=== PATIENT | female | born 1950 | race Caucasian/White ===

== ENCOUNTER 2019-11-18 09:28 | Inpatient (IN) | payer MEDICARE, BC ==
[2019-11-18] MEDS ORDERED: HYDROmorphone 0.5 MG/0.5 ML Syringe IVPUSH ONE ×3 (09:49→13:09)
[2019-11-18] MEDS ORDERED: Ondansetron 4 MG/2 ML SDV IVPUSH ONE (09:49)
[2019-11-18] MEDS ORDERED: Lactated Ringers 1,000 ML IV SCH (10:00)
--- NOTE | 2019-11-18 10:05 | EDM.PDOC ---
ED HPI GENERAL MEDICAL PROBLEM - General Chief Complaint: Abdominal Pain Stated Complaint: PAIN IN STOMACH AREA Time Seen by Provider: 11/18/19 09:45 Source of Information: Reports: Patient History Limitations: Reports: No Limitations - History of Present Illness INITIAL COMMENTS - FREE TEXT/NARRATIVE: 61-year-old female, relatively healthy without any history of abdominal surgeries, presents with upper abdominal pain for the past 15 hours. She had a similar episode 3 weeks ago that lasted 2 hours and then resolved. Last night after her evening meal she developed upper abdominal pain radiating to her back and it is been persistent for 15 hours. Some nausea and vomiting, no fevers or chills, no urinary symptoms, no diarrhea or constipation. Denies shortness of breath or chest pain, no pleuritic pain. Onset: Sudden (Symptoms started fairly suddenly just after 7 PM last evening) Duration: Hour(s): (15 hours) Location: Reports: Abdomen Improves with: Reports: None (She tried some of her pain medication and it did not help) Worsens with: Reports: Movement Associated Symptoms: Reports: Loss of Appetite, Nausea/Vomiting. Denies: Confusion, Chest Pain, Cough, Diaphoresis, Fever/Chills, Shortness of Breath, Weakness Abdominal Pain Score (Numeric/FACES): 10 - Related Data Allergies Allergy/AdvReac Type Severity Reaction Status Date / Time flurbiprofen [From Ansaid] Allergy Abdominal Verified 11/18/19 09:35 Pain Sulfa (Sulfonamide Allergy Rash Verified 01/25/14 10:45 Antibiotics) Home Meds: Home Meds DULoxetine [Cymbalta] 120 mg PO DAILY 01/25/14 [History] Calcium Carbonate [Tums] 400 mg PO ASDIRECTED PRN 11/18/19 [History] ClonazePAM [KlonoPIN] 0.25 mg PO DAILY 11/18/19 [History] Famotidine [Pepcid AC] 20 mg PO BID 11/18/19 [History] Hydrocodone/Acetaminophen [[place] 10-325 Tablet] 1 each PO DAILY 11/18/19 [ History] Topiramate 25 mg PO BEDTIME 11/18/19 [History] buPROPion [buPROPion XL] 450 mg PO DAILY 11/18/19 [History] estradioL [Estradiol] 1 mg PO DAILY 11/18/19 [History] medroxyPROGESTERone Acetate [Provera] 2.5 mg PO DAILY 11/18/19 [History] traZODone 100 mg PO BEDTIME 11/18/19 [History] Past Medical History HEENT History: Reports: Cataract Gastrointestinal History: Reports: GERD Musculoskeletal History: Reports: Fracture, Fibromyalgia, Osteoarthritis Neurological History: Reports: Migraines Psychiatric History: Reports: Anxiety, Depression - Infectious Disease History Infectious Disease History: Reports: Chicken Pox, Measles - Past Surgical History HEENT Surgical History: Reports: Cataract Surgery Musculoskeletal Surgical History: Reports: Other (See Below) Other Musculoskeletal Surgeries/Procedures:: bunionectomy Social & Family History - Tobacco Use Smoking Status *Q: Never Smoker - Caffeine Use Caffeine Use: Reports: None - Recreational Drug Use Recreational Drug Use: No ED ROS GENERAL - Review of Systems Review Of Systems: See Below Constitutional: Reports: Malaise, Decreased Appetite. Denies: Fever, Chills HEENT: Reports: No Symptoms Respiratory: Denies: Shortness of Breath Cardiovascular: Denies: Chest Pain GI/Abdominal: Reports: Abdominal Pain, Decreased Appetite, Nausea, Vomiting. Denies: Constipation, Diarrhea, Distension, Hematemesis, Hematochezia : Reports: No Symptoms Skin: Reports: No Symptoms Neurological: Reports: No Symptoms. Denies: Headache Psychiatric: Reports: Anxiety ED EXAM, GI/ABD - Physical Exam Exam: See Below Exam Limited By: No Limitations General Appearance: Alert, No Apparent Distress Eyes: Bilateral: Normal Appearance (No jaundice) Head: Atraumatic Respiratory/Chest: No Respiratory Distress, Lungs Clear Cardiovascular: Regular Rate, Rhythm GI/Abdominal Exam: Normal Bowel Sounds, Soft, Tender (Very tender to palpation across the upper abdomen especially epigastric and right upper quadrant, Ram sign is positive) Extremities: Normal Inspection. No: Pedal Edema Neurological: Alert, Oriented Psychiatric: Normal Affect, Normal Mood Course - Vital Signs Last Recorded V/S: Last Vital Signs Temp 97.7 F 11/18/19 09:42 Pulse 79 11/18/19 13:11 Resp 18 11/18/19 13:11 BP 189/79 H 11/18/19 13:11 Pulse Ox 97 11/18/19 13:11 - Orders/Labs/Meds Orders: Active Orders 24 hr Category Date Time Status Lactated Ringers [Ringers, Lactated] 1,000 ml Med 11/18/19 10:00 Active IV ASDIRECTED Medication Orders Lactated Ringer's (Ringers, Lactated) 1,000 mls @ 500 mls/hr IV ASDIRECTED DENISSE Last Admin: 11/18/19 10:11 Dose: 500 mls/hr Labs: Laboratory Tests 11/18/19 11/18/19 Range/Units 10:05 10:05 WBC 11.9 H (4.5-11.0) K/uL RBC 4.61 (3.30-5.50) M/uL Hgb 14.3 (12.0-15.0) g/dL Hct 43.9 (36.0-48.0) % MCV 95 (80-98) fL MCH 31 (27-31) pg MCHC 33 (32-36) % Plt Count 170 (150-400) K/uL Neut % (Auto) 89 H (36-66) % Lymph % (Auto) 6 L (24-44) % [place] % (Auto) 5 (2-6) % Eos % (Auto) 0 L (2-4) % Baso % (Auto) 0 (0-1) % Sodium 134 L (140-148) mmol/L Potassium 3.9 (3.6-5.2) mmol/L Chloride 98 L (100-108) mmol/L Carbon Dioxide 26 (21-32) mmol/L Anion Gap 13.9 (5.0-14.0) mmol/L BUN 16 (7-18) mg/dL Creatinine 0.9 (0.6-1.0) mg/dL Est Cr Clr Drug Dosing 51.66 mL/min Estimated GFR (MDRD) > 60 (>60) Glucose 142 H (74-106) mg/dL Calcium 8.3 L (8.5-10.1) mg/dL Total Bilirubin 0.7 (0.2-1.0) mg/dL AST 76 H (15-37) U/L ALT 72 (12-78) U/L Alkaline Phosphatase 65 (46-116) U/L Total Protein 7.1 (6.4-8.2) g/dL Albumin 4.0 (3.4-5.0) g/dL Globulin 3.1 (2.3-3.5) g/dL Albumin/Globulin Ratio 1.3 (1.2-2.2) Lipase 54 L (73-393) U/L Meds: Medications Generic Name Dose Route Start Last Admin Trade Name [place] PRN Reason Stop Dose Admin Lactated Ringer's 1,000 mls @ 500 mls/hr 11/18/19 10:00 11/18/19 10:11 Ringers, Lactated IV 500 mls/hr ASDIRECTED DENISSE Administration Discontinued Medications Generic Name Dose Route Start Last Admin Trade Name [place] PRN Reason Stop Dose Admin Hydromorphone HCl 0.5 mg 11/18/19 09:49 11/18/19 10:12 Dilaudid IVPUSH 11/18/19 09:50 0.5 mg ONETIME ONE Administration Hydromorphone HCl 0.5 mg 11/18/19 11:31 11/18/19 11:38 Dilaudid IVPUSH 11/18/19 11:32 0.5 mg ONETIME ONE Administration Hydromorphone HCl 0.5 mg 11/18/19 13:09 11/18/19 13:18 Dilaudid IVPUSH 11/18/19 13:10 0.5 mg ONETIME ONE Administration Ampicillin Sodium/Sulbactam 50 mls @ 100 mls/hr 11/18/19 11:30 11/18/19 11:37 Sodium 1.5 gm/ Sodium Chloride IV 11/18/19 11:59 100 mls/hr ONETIME ONE Administration Ondansetron HCl 4 mg 11/18/19 09:49 11/18/19 10:12 Zofran IVPUSH 11/18/19 09:50 4 mg ONETIME ONE Administration - Re-Assessments/Exams Free Text/Narrative Re-Assessment/Exam: 11/18/19 10:04 An IV was started, patient was given 0.5 mg of IV Dilaudid and 4 mg of Zofran. A courtesy ultrasound was performed that showed a somewhat dilated gallbladder, no obviously thickened wall or pericholecystic fluid but a lot of dependent stones in the neck of the gallbladder. She was also tender from the ultrasound probe. CBC, CMP, lipase were obtained and lactated Ringer IV solution at 500 cc an hour started. This likely is biliary colic. 11/18/19 10:19 IV Dilaudid gave the patient significant pain relief. White count returned 11, 900, rest of labs are still pending. 11/18/19 11:18 AST is mildly elevated, ALT and alk phos as well as lipase were normal. A formal ultrasound was obtained and showed a positive Rma sign with numerous stones, borderline wall thickening but no pericholecystic fluid or biliary distention. Dr. Sheffield asked for the hospitalist service to admit the patient for pain control, hydration, and monitoring to prepare for surgery tomorrow morning. Patient was in agreement with the plan. Departure - Departure Time of Disposition: 12:05 Disposition: Admitted As Inpatient 67 Clinical Impression: Biliary colic Abdominal pain Qualifiers: Abdominal location: upper abdomen, unspecified Qualified Code(s): R10.10 - Upper abdominal pain, unspecified - Discharge Information Sepsis Event Note - Evaluation Sepsis Screening Result: No Definite Risk - Focused Exam Vital Signs: Vital Signs Temp Pulse Resp BP Pulse Ox 11/18/19 11:24 80 16 190/64 H 97 11/18/19 10:16 75 16 189/74 H 96 11/18/19 09:42 97.7 F 72 13 193/75 H 96 11/18/19 09:34 97.7 F 72 13 193/75 H 96 Date Exam was Performed: 11/18/19 Time Exam was Performed: 13:32 - My Orders Last 24 Hours: My Active Orders 11/18/19 10:00 Lactated Ringers [Ringers, Lactated] 1,000 ml IV ASDIRECTED - Assessment/Plan Last 24 Hours: My Active Orders 11/18/19 10:00 Lactated Ringers [Ringers, Lactated] 1,000 ml IV ASDIRECTED
[2019-11-18] MEDS ORDERED: Ampicillin/Sulbactam Na 1.5 GM in Sodium Chloride 0.9% 50 ML IV ONE ×2 (11:17→11:30)
--- NOTE | 2019-11-18 11:48 | US ---
Abdomen Ltd CLINICAL HISTORY: Right upper quadrant pain COMPARISON: None. TECHNIQUE: Real-time images were obtained through the right upper quadrant. FINDINGS: The liver is free of mass or biliary dilatation. There is increased hepatic echogenicity. The gallbladder is hydropic. There are multiple small gallstones. The common bile duct measures 5 mm. The pancreas is partially obscured. No mass is identified. The right kidney has a normal appearance. The IVC is normal. IMPRESSION: Hydropic gallbladder with multiple small stones. No biliary ductal dilatation Increased hepatic echotexture suggests fatty infiltration
--- NOTE | 2019-11-18 12:29 | PCM.HP.2 ---
H&P History of Present Illness - General Date of Service: 11/18/19 Admit Problem/Dx: Admission Diagnosis/Problem Admission Diagnosis/Problem Cholecystitis Source of Information: Patient, Provider, RN Notes Reviewed History Limitations: Reports: No Limitations - History of Present Illness Initial Comments - Free Text/Narative: Ms. Lou is a 69-year-old woman who was admitted through the emergency department with upper abdominal pain, nausea and vomiting, and dehydration secondary to acute cholecystitis. She was feeling well until after her evening meal last night when she developed upper abdominal pain described as an intense ache radiating to her back. This was associated with nausea and vomiting. Symptoms persisted until this morning when she presented to the emergency department for further evaluation. White cell count was found to be modestly elevated, AST mildly elevated, otherwise labs were unremarkable. Abdominal ultrasound was obtained and shows evidence of cholelithiasis, borderline gallbladder wall thickening, and positive Ram's sign. These findings were reviewed with Dr. Sheffield, he requested patient be admitted for cholecystectomy tomorrow. Abdominal Pain Score (Numeric/FACES): 5 - Related Data Allergies/Adverse Reactions: Allergies Allergy/AdvReac Type Severity Reaction Status Date / Time flurbiprofen [From Ansaid] Allergy Abdominal Verified 11/18/19 09:35 Pain Sulfa (Sulfonamide Allergy Rash Verified 01/25/14 10:45 Antibiotics) Home Medications: Home Meds DULoxetine [Cymbalta] 120 mg PO DAILY 01/25/14 [History] Calcium Carbonate [Tums] 400 mg PO ASDIRECTED PRN 11/18/19 [History] ClonazePAM [KlonoPIN] 0.25 mg PO DAILY 11/18/19 [History] Famotidine [Pepcid AC] 20 mg PO BID 11/18/19 [History] Hydrocodone/Acetaminophen [[place] 10-325 Tablet] 1 each PO DAILY 11/18/19 [ History] Topiramate 25 mg PO BEDTIME 11/18/19 [History] buPROPion [buPROPion XL] 450 mg PO DAILY 11/18/19 [History] estradioL [Estradiol] 1 mg PO DAILY 11/18/19 [History] medroxyPROGESTERone Acetate [Provera] 2.5 mg PO DAILY 11/18/19 [History] traZODone 100 mg PO BEDTIME 11/18/19 [History] Past Medical History HEENT History: Reports: Cataract Gastrointestinal History: Reports: GERD Musculoskeletal History: Reports: Fracture, Fibromyalgia, Osteoarthritis Neurological History: Reports: Migraines Psychiatric History: Reports: Anxiety, Depression - Infectious Disease History Infectious Disease History: Reports: Chicken Pox, Measles - Past Surgical History HEENT Surgical History: Reports: Cataract Surgery Musculoskeletal Surgical History: Reports: Other (See Below) Other Musculoskeletal Surgeries/Procedures:: bunionectomy Social & Family History - Tobacco Use Smoking Status *Q: Never Smoker - Caffeine Use Caffeine Use: Reports: None - Recreational Drug Use Recreational Drug Use: No H&P Review of Systems - Review of Systems: Review Of Systems: See Below General: Reports: Fever, Chills, Weakness, Decreased Appetite HEENT: Reports: No Symptoms Pulmonary: Reports: No Symptoms Cardiovascular: Reports: No Symptoms Gastrointestinal: Reports: Abdominal Pain, Decreased Appetite, Distension, Nausea, Vomiting. Denies: Black Stool, Bloody Stool, Constipation, Diarrhea Genitourinary: Reports: No Symptoms Musculoskeletal: Reports: No Symptoms Skin: Reports: No Symptoms Psychiatric: Reports: No Symptoms Neurological: Reports: No Symptoms Hematologic/Lymphatic: Reports: No Symptoms Immunologic: Reports: No Symptoms Exam - Exam Exam: See Below - Vital Signs Vital Signs: Last Vital Signs Temp 97.7 F 11/18/19 09:42 Pulse 80 11/18/19 11:24 Resp 16 11/18/19 11:24 BP 190/64 H 11/18/19 11:24 Pulse Ox 97 11/18/19 11:24 Weight: 173 lb - Exam Quality Assessment: DVT Prophylaxis General: Alert, Oriented, Cooperative, Moderate Distress HEENT: Conjunctiva Clear, Hearing Intact, Normal Nasal Septum, Posterior Pharynx Clear, Pupils Equal. No: Mucosa Moist & [place] Neck: Supple, Trachea Midline, +2 Carotid Pulse wo Bruit Lungs: Clear to Auscultation, Normal Respiratory Effort Cardiovascular: Regular Rate, Regular Rhythm, Normal S1, Normal S2. No: Systolic Murmur, Diastolic Murmur GI/Abdominal Exam: Soft, No Organomegaly, Distended, Tender. No: Guarding, Rigid, Rebound Back Exam: Normal Inspection, Full Range of Motion Extremities: Non-Tender, No Pedal Edema Skin: Warm, Dry, Intact Neurological: Cranial Nerves Intact, Strength Equal Bilateral, Normal Speech, Normal Tone, Sensation Intact. No: Focal Deficit Neuro Extensive - Mental Status: Alert, Oriented x3, Normal Mood/Affect, Normal Cognition, Memory Intact - Patient Data Lab Results Last 24 hrs: Laboratory Results - last 24 hr 11/18/19 11/18/19 Range/Units 10:05 10:05 WBC 11.9 H (4.5-11.0) K/uL RBC 4.61 (3.30-5.50) M/uL Hgb 14.3 (12.0-15.0) g/dL Hct 43.9 (36.0-48.0) % MCV 95 (80-98) fL MCH 31 (27-31) pg MCHC 33 (32-36) % Plt Count 170 (150-400) K/uL Neut % (Auto) 89 H (36-66) % Lymph % (Auto) 6 L (24-44) % [place] % (Auto) 5 (2-6) % Eos % (Auto) 0 L (2-4) % Baso % (Auto) 0 (0-1) % Sodium 134 L (140-148) mmol/L Potassium 3.9 (3.6-5.2) mmol/L Chloride 98 L (100-108) mmol/L Carbon Dioxide 26 (21-32) mmol/L Anion Gap 13.9 (5.0-14.0) mmol/L BUN 16 (7-18) mg/dL Creatinine 0.9 (0.6-1.0) mg/dL Est Cr Clr Drug Dosing 51.66 mL/min Estimated GFR (MDRD) > 60 (>60) Glucose 142 H (74-106) mg/dL Calcium 8.3 L (8.5-10.1) mg/dL Total Bilirubin 0.7 (0.2-1.0) mg/dL AST 76 H (15-37) U/L ALT 72 (12-78) U/L Alkaline Phosphatase 65 (46-116) U/L Total Protein 7.1 (6.4-8.2) g/dL Albumin 4.0 (3.4-5.0) g/dL Globulin 3.1 (2.3-3.5) g/dL Albumin/Globulin Ratio 1.3 (1.2-2.2) Lipase 54 L (73-393) U/L Result Diagrams: 11/18/19 10:05 11/18/19 10:05 Sepsis Event Note - Evaluation Sepsis Screening Result: No Definite Risk - Focused Exam Vital Signs: Vital Signs Temp Pulse Resp BP Pulse Ox 11/18/19 11:24 80 16 190/64 H 97 11/18/19 10:16 75 16 189/74 H 96 11/18/19 09:42 97.7 F 72 13 193/75 H 96 11/18/19 09:34 97.7 F 72 13 193/75 H 96 Date Exam was Performed: 11/18/19 Time Exam was Performed: 12:40 *Q Meaningful Use (ADM) - VTE *Q VTE Pharmacological Contraindications *Q: Patient Scheduled Surgery - VTE Risk Assess *Q Each Risk Factor Represents 1 Point: Obesity ( BMI > 25 kg/m2) Total Score 1 Point Risk Factors: 1 Each Risk Factor Represents 2 Points: Age 60 - 74 Years Total Score 2 Point Risk Factors: 2 Each Risk Factor Represents 3 Points: None Total Score 3 Point Risk Factors: 0 Each Risk Factor Represents 5 Points: None Total Score 5 Point Risk Factors: 0 Venous Thromboembolism Risk Factor Score *Q: 3 Problem List Initiated/Reviewed/Updated: Yes Orders Last 24hrs: Active Orders 24 hr Category Date Time Status Patient Status Manage Transfer [TRANSFER] Routine ADT 11/18/19 12:21 Active Lactated Ringers [Ringers, Lactated] 1,000 ml Med 11/18/19 10:00 Active IV ASDIRECTED Resuscitation Status Routine Resus Stat 11/18/19 12:23 Ordered Medication Orders Lactated Ringer's (Ringers, Lactated) 1,000 mls @ 500 mls/hr IV ASDIRECTED DENISSE Last Admin: 11/18/19 10:11 Dose: 500 mls/hr Assessment/Plan Comment:: ASSESSMENT AND PLAN ACUTE CHOLECYSTITIS-is experienced 1 previous episode of similar symptoms. Current symptoms began on the evening prior to admission and persisted until she presented to the emergency department this morning. Ultrasound evaluation consistent with acute cholecystitis. -Clear liquid diet -N.p.o. after midnight -Consult Dr. Sheffield to see and assume care -IV fluids for hydration -Pain and nausea medication as needed -Unasyn 1.5 g IV every 6 hours DEPRESSION-stable on current medical therapy -Continue outpatient medications MAINTENANCE ISSUES -DVT prophylaxis; SCUDs, hold on anticoagulation because of pending surgery -GI prophylaxis; continue outpatient H2 adriano therapy -Manuel catheter; not indicated -Nutrition; clear liquid diet, n.p.o. after midnight -Nicotine dependence; not indicated CODE STATUS-FULL CODE ADMISSION STATUS-patient will be admitted to inpatient status, expect at least a 2 night hospital stay for evaluation and management of problems as outlined above. At the time of this admission I do not reasonably expected evaluation and management of this problem will require more than a 96 hour hospital stay. DISPOSITION-anticipate discharge to home after the hospital stay. PRIMARY CARE PROVIDER- - Mortality Measure Prognosis:: Good
[2019-11-18] MEDS ORDERED: Ondansetron 4 MG/2 ML SDV IV PRN (13:36)
[2019-11-18] MEDS ORDERED: Sodium Chloride 0.9% 10 ML Syringe FLUSH PRN (13:36)
[2019-11-18] MEDS ORDERED: Non-Formulary Medication 1 Each (Clonazepam [Klonopin] 0.25 MG) PO SCH (13:36)
[2019-11-18] MEDS: Lactated Ringers 1,000 ML IV SCH ×2 (13:58→21:56)
[2019-11-18] MEDS: Acetaminophen 325 MG Tab PO PRN ×2 (14:08→19:21)
[2019-11-18] MEDS: buPROPion 150 MG Tab.ER PO SCH (15:04)
[2019-11-18] MEDS: DULoxetine 30 MG Cap PO SCH (15:04)
[2019-11-18] MEDS: HYDROmorphone 0.5 MG/0.5 ML Syringe IVPUSH PRN ×3 (15:18→19:21)
[2019-11-18] MEDS: Ampicillin/Sulbactam Na 1.5 GM in Sodium Chloride 0.9% 50 ML IV SCH ×2 (17:08→23:16)
[2019-11-18] MEDS: Famotidine 20 MG Tab PO SCH (20:29)
[2019-11-18] MEDS: Topiramate 25 MG Tab PO SCH (20:29)
[2019-11-18] MEDS: ClonazePAM 0.5 MG Tab PO SCH (20:29)
[2019-11-18] MEDS: traZODone 50 MG Tab PO SCH (20:29)
[2019-11-18] MEDS ORDERED: Non-Formulary Medication 1 Each (Trazodone [Trazodone] 100 MG) PO SCH (21:00)
[2019-11-18] MEDS: HYDROmorphone 1 MG/ML Syringe IVPUSH PRN (21:48)
[2019-11-19] MEDS: HYDROmorphone 1 MG/ML Syringe IVPUSH PRN (03:51)
[2019-11-19] MEDS: Acetaminophen 325 MG Tab PO PRN (03:57)
[2019-11-19] MEDS: Ampicillin/Sulbactam Na 1.5 GM in Sodium Chloride 0.9% 50 ML IV SCH ×4 (05:21→22:50)
[2019-11-19] MEDS: Lactated Ringers 1,000 ML IV SCH (07:10)
[2019-11-19] MEDS ORDERED: HYDROmorphone/Normal Saline 15 MG/30 ML PCA IV PRN (07:24)
[2019-11-19] MEDS ORDERED: Naloxone 0.4 MG/ML SDV IV PRN (07:30)
[2019-11-19] MEDS ORDERED: Estradiol 0.5 MG Tab PO SCH (09:00)
[2019-11-19] MEDS: Estradiol 0.5 MG Tab PO SCH (09:16)
[2019-11-19] MEDS: DULoxetine 30 MG Cap PO SCH (09:16)
[2019-11-19] MEDS: Famotidine 20 MG Tab PO SCH (09:16)
[2019-11-19] MEDS: buPROPion 150 MG Tab.ER PO SCH (09:16)
[2019-11-19] MEDS ORDERED: Bupivacaine 0.5%/EPINEPHrine 1:200,000 50 ML MDV ONE (09:20)
--- NOTE | 2019-11-19 09:20 | PN ---
DATE OF SERVICE: 11/19/2019 SUBJECTIVE: Amelie is a 69-year-old female, who was admitted to the hospital for acute cholecystitis. She will be having laparoscopic cholecystectomy today. Temp max 100.5. Pain has been controlled with IV Dilaudid. Reports pain 2/10. She is receiving Unasyn as an antibiotic. REVIEW OF SYSTEMS: Remainder of review of systems negative for any pertinent positives and negatives. OBJECTIVE: GENERAL: Amelie is a pleasant 69-year-old female. VITAL SIGNS: TPR at 0722 was 98, 187, 16, blood pressure 98/51. HEENT: Negative. NECK: Supple. HEART: Regular rate and rhythm. LUNGS: Clear. ABDOMEN: Extreme tenderness in the right upper quadrant. EXTREMITIES: Without peripheral edema. NEURO: Intact. Mood and affect appropriate. ASSESSMENT: Acute cholecystitis. PLAN: Schedule and have consent signed for laparoscopic possible open cholecystectomy today, 11/19/2019 at 1230. General anesthesia, TAP block, ketamine bolus and drip. Surgeon: Angelo Sheffield MD. She is getting Unasyn as an antibiotic. 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 After preoperative evaluation, discussion of possible risks and possible complications, she wished to proceed with surgical procedure. Anabela Fabian PA-C /[id number]
[2019-11-19] MEDS ORDERED: Propofol 200 MG/20 ML SDV ONE (12:18)
[2019-11-19] MEDS ORDERED: Dexamethasone 4 MG/ML SDV ONE (12:18)
[2019-11-19] MEDS ORDERED: Glycopyrrolate 0.2 MG/ML 5 ML MDV ONE (12:18)
[2019-11-19] MEDS ORDERED: Succinylcholine 200 MG/10 ML MDV ONE (12:18)
[2019-11-19] MEDS ORDERED: Neostigmine Methylsulfate 1 MG/ML 5 ML Syringe ONE (12:18)
[2019-11-19] MEDS ORDERED: Ondansetron 4 MG/2 ML SDV ONE (12:18)
[2019-11-19] MEDS ORDERED: fentaNYL 250 MCG/5 ML SDV ONE (12:18)
[2019-11-19] MEDS ORDERED: Rocuronium 50 MG/5 ML Vial ONE (12:18)
[2019-11-19] MEDS ORDERED: Ropivacaine 40 ML, dexAMETHasone 8 MG, EPINEPHrine 0.4 MG, Sodium Chloride 0.9% 37.6 ML NERVRT SCH ×4 (12:30)
[2019-11-19] MEDS ORDERED: Ketamine 50 MG in Sodium Chloride 0.9% 49.5 ML IV SCH (12:30)
[2019-11-19] MEDS ORDERED: Ketamine 500 MG/5 ML MDV IV SCH ×3 (12:30)
[2019-11-19] MEDS ORDERED: fentaNYL 100 MCG/2 ML SDV ONE (14:16)
[2019-11-19] MEDS ORDERED: Labetalol 20 MG/4 ML Syringe ONE (14:17)
[2019-11-19] MEDS ORDERED: Ondansetron 4 MG/2 ML SDV IVPUSH PRN (15:55)
[2019-11-19] MEDS: Dextrose 5%-Lactated Ringers 1,000 ML IV SCH (18:19)
[2019-11-19] MEDS: Pantoprazole 40 MG Vial IVPUSH SCH (19:20)
[2019-11-19] MEDS: traZODone 50 MG Tab PO SCH (20:34)
[2019-11-19] MEDS: ClonazePAM 0.5 MG Tab PO SCH (21:19)
[2019-11-19] MEDS: Topiramate 25 MG Tab PO SCH (21:19)
[2019-11-20] MEDS ORDERED: Acetaminophen 325 MG Tab PO PRN (00:55)
[2019-11-20] MEDS: Ampicillin/Sulbactam Na 1.5 GM in Sodium Chloride 0.9% 50 ML IV SCH ×4 (05:34→23:21)
[2019-11-20] MEDS: Dextrose 5%-Lactated Ringers 1,000 ML IV SCH (05:35)
[2019-11-20] MEDS: Acetaminophen/HYDROcodone 325-5 MG Tab PO PRN ×5 (05:56→21:18)
[2019-11-20] MEDS ORDERED: Dextrose 5%-Lactated Ringers 1,000 ML IV SCH (07:06)
[2019-11-20] MEDS ORDERED: Furosemide 20 MG/2 ML VIAL IVPUSH ONE (07:30)
[2019-11-20] MEDS: buPROPion 150 MG Tab.ER PO SCH (08:26)
[2019-11-20] MEDS: Potassium Phos in 0.9 % NaCl 15 MMOL in Premix Bag 1 BAG IV SCH ×8 (08:26→20:11)
[2019-11-20] MEDS: Docusate Sodium 100 MG Cap PO SCH ×2 (08:26→22:19)
[2019-11-20] MEDS: DULoxetine 30 MG Cap PO SCH (08:26)
[2019-11-20] MEDS: Bisacodyl 5 MG Tab PO SCH ×2 (08:26→22:19)
[2019-11-20] MEDS: Estradiol 0.5 MG Tab PO SCH (08:26)
[2019-11-20] MEDS: LORazepam 0.5 MG Tab PO PRN ×3 (09:28→18:15)
--- NOTE | 2019-11-20 10:44 | PN ---
DATE OF SERVICE: 11/20/2019 SUBJECTIVE: Amelie is postoperative day 1, on temp max of 100.1. She has been very sleepy. From the HORTICULTURAL FARMWORKER, she was just switched over to oral Gordon this morning. Oral intake 820, urine output 2200. MARI drain put out 20 mL of light pink drainage. LABORATORIES: This morning, WBC was 16.1, hemoglobin 12.5. Phosphorus is 1.1 and bilirubin 0.3. BNP is elevated at 6869. REVIEW OF SYSTEMS: Remainder of review of systems negative for any pertinent positives and negatives. OBJECTIVE: GENERAL: Amelie Lou is a pleasant 69-year-old female. Alert, orientated. VITAL SIGNS: TPR is 97.8, 81, 18. Blood pressure 145/68. HEENT: Negative. NECK: Supple. HEART: Regular rate and rhythm. LUNGS: Clear. ABDOMEN: Dressings dry and intact. MARI drain as above and abdominal binder has been on. EXTREMITIES: Without peripheral edema. ASSESSMENT: Laparoscopic cholecystectomy and drainage of pericholecystic abscess for gangrenous cholecystitis with pericholecystic abscess. Date of surgery: 11/19/2019. Surgeon: Angelo Sheffield MD. PLAN: 1. Communication order written to remove packing in upper trocar site and replace with 4 x 4 gauze, change 4 x 4 gauze b.i.d. and p.r.n. 2. Decrease IV to 75 mL per hour. 3. Colace 100 mg p.o. b.i.d. 4. Dulcolax 10 mg p.o. b.i.d. and to discontinue when the patient has a bowel movement. 5. Discontinue Azactam. 6. K-Phos 16 mmol IV 1 time for phosphorus of 1.1. 7. Check CBC, CMP, BNP, mag, and phos in a.m. May shower. Continue good pulmonary toilet. 8. We will evaluate p.r.n. or in a.m. Anabela Fabian PA-C /[id number]
[2019-11-20] MEDS ORDERED: Cyclobenzaprine 10 MG Tab PO ONE (20:05)
[2019-11-20] MEDS: Pantoprazole 40 MG Vial IVPUSH SCH (20:05)
[2019-11-20] MEDS: ClonazePAM 0.5 MG Tab PO SCH (22:18)
[2019-11-20] MEDS: traZODone 50 MG Tab PO SCH (22:20)
[2019-11-20] MEDS: Topiramate 25 MG Tab PO SCH (22:22)
[2019-11-21] MEDS: Acetaminophen/HYDROcodone 325-5 MG Tab PO PRN ×4 (03:31→21:46)
[2019-11-21] MEDS: Ampicillin/Sulbactam Na 1.5 GM in Sodium Chloride 0.9% 50 ML IV SCH ×3 (05:24→17:25)
[2019-11-21] MEDS: Furosemide 20 MG/2 ML VIAL IVPUSH ONE ×2 (07:51→08:31)
[2019-11-21] MEDS: Potassium Phos in 0.9 % NaCl 15 MMOL in Premix Bag 1 BAG IV SCH ×10 (07:56→18:12)
[2019-11-21] MEDS ORDERED: Sodium Chloride 0.9% 1,000 ML IV ONE (08:00)
[2019-11-21] MEDS: Cyclobenzaprine 10 MG Tab PO PRN ×2 (08:27→16:41)
[2019-11-21] MEDS: Docusate Sodium 100 MG Cap PO SCH ×2 (08:32→21:47)
[2019-11-21] MEDS: DULoxetine 30 MG Cap PO SCH (08:33)
[2019-11-21] MEDS: buPROPion 150 MG Tab.ER PO SCH (08:33)
[2019-11-21] MEDS: Estradiol 0.5 MG Tab PO SCH (08:33)
[2019-11-21] MEDS: Bisacodyl 5 MG Tab PO SCH ×2 (08:33→21:47)
--- NOTE | 2019-11-21 10:00 | PN ---
DATE OF SERVICE: 11/21/2019 SUBJECTIVE: Amelie has been afebrile. She has been having increased amount of pain, which she describes as spasm. Cyclobenzaprine has helped. Also reports an increased anxiety, so yesterday she was started on Ativan and that seemed to help with excessive anxiety. Labs this morning, hemoglobin down to 10.6, white count is 9.9, potassium is 3.2, and phosphorus after replacement yesterday is 2.1. BNP is down to 3852. REVIEW OF SYSTEMS: Remainder of review of systems negative for any pertinent positives and negatives. OBJECTIVE: GENERAL: Amelie Lou is a pleasant 69-year-old female, alert and orientated. VITAL SIGNS: TPR at 0700, 98, 87, 16, blood pressure 136/65, HEENT: Negative. NECK: Supple. HEART: Regular rate and rhythm. LUNGS: Clear. ABDOMEN: Dressings dry and intact. Abdominal binder is on. EXTREMITIES: Without peripheral edema. ASSESSMENT: Laparoscopic cholecystectomy and drainage of pericholecystic abscess for gangrenous cholecystitis with pericholecystic abscess. Date of surgery: 11/19/2019. Surgeon: Angelo Sheffield MD. PLAN: 1. K-Phos 75 millimoles IV today. 2. Lasix 20 mg IV now. 3. Acapella. 4. Respiratory Therapy to evaluate and treat. 5. Check CBC, CMP, mag, phos, and BNP in a.m. 6. Plan discharge in a.m. with home health care. 7. We will evaluate p.r.n. or in a.m. Anabela Fabian PA-C /[id number]
[2019-11-21] MEDS: ClonazePAM 0.5 MG Tab PO SCH (21:46)
[2019-11-21] MEDS: Pantoprazole 40 MG Tab.CR PO SCH (21:47)
[2019-11-21] MEDS: Topiramate 25 MG Tab PO SCH (21:48)
[2019-11-21] MEDS: traZODone 50 MG Tab PO SCH (21:48)
[2019-11-22] MEDS: Ampicillin/Sulbactam Na 1.5 GM in Sodium Chloride 0.9% 50 ML IV SCH ×5 (00:16→23:31)
[2019-11-22] MEDS: Acetaminophen/HYDROcodone 325-5 MG Tab PO PRN ×5 (02:38→21:57)
[2019-11-22] MEDS: Cyclobenzaprine 10 MG Tab PO PRN ×2 (02:39→13:55)
[2019-11-22] MEDS: Docusate Sodium 100 MG Cap PO SCH ×3 (08:41→21:13)
[2019-11-22] MEDS: Estradiol 0.5 MG Tab PO SCH (08:41)
[2019-11-22] MEDS: DULoxetine 30 MG Cap PO SCH (08:41)
[2019-11-22] MEDS: LORazepam 0.5 MG Tab PO PRN ×2 (08:42→21:11)
[2019-11-22] MEDS: Bisacodyl 5 MG Tab PO SCH (08:45)
[2019-11-22] MEDS: Furosemide 20 MG/2 ML VIAL IVPUSH SCH ×2 (08:45→16:38)
[2019-11-22] MEDS: Potassium Phos in 0.9 % NaCl 15 MMOL in Premix Bag 1 BAG IV SCH ×8 (08:50→16:25)
[2019-11-22] MEDS: buPROPion 150 MG Tab.ER PO SCH (08:53)
[2019-11-22] MEDS ORDERED: Benzocaine/Cetylpyridinium/Menthol Lozenge MUCMEM PRN (12:33)
[2019-11-22] MEDS: Topiramate 25 MG Tab PO SCH (21:10)
[2019-11-22] MEDS: ClonazePAM 0.5 MG Tab PO SCH (21:10)
[2019-11-22] MEDS: traZODone 50 MG Tab PO SCH (21:12)
[2019-11-22] MEDS: Pantoprazole 40 MG Tab.CR PO SCH (21:12)
[2019-11-22] MEDS ORDERED: Amoxicillin/Clavulanate K 875-125 MG Tab PO ONE (23:33)
[2019-11-23] MEDS: Acetaminophen/HYDROcodone 325-5 MG Tab PO PRN ×2 (02:16→05:59)
[2019-11-23] MEDS: buPROPion 150 MG Tab.ER PO SCH (08:46)
[2019-11-23] MEDS: Docusate Sodium 100 MG Cap PO SCH (08:47)
[2019-11-23] MEDS: DULoxetine 30 MG Cap PO SCH (08:47)
[2019-11-23] MEDS: Estradiol 0.5 MG Tab PO SCH (08:47)
[2019-11-23] MEDS ORDERED: Potassium Chloride 20 MEQ Tab.ER PO ONE (09:00)
[2019-11-23] MEDS ORDERED: Amoxicillin/Clavulanate K 875-125 MG Tab PO SCH (09:00)
[2019-11-23] MEDS ORDERED: Furosemide 20 MG Tab PO ONE (09:00)
--- NOTE | 2019-11-24 13:15 | PN ---
DATE OF SERVICE: 11/22/2019 The patient had a temperature up to 100.4 last night and was 99 through much of the night, heart rate is in the 88 to 103. When she had a fever, she did have a slight tachycardia of the 103 range. Otherwise, vital signs were pretty fairly stable. She does appear to be alert. She has been fairly inefficient in terms of using her incentive spirometer. Her BNP remains fairly elevated. She had measured positive intake of 260, so given measured loss, she probably had a total negative I and O of around 500 mL. Given all this, I think she is too frail to be sending home, and with a fever last night and possibly developing pulmonary or other complications, we will have her walk to tolerance of at least 6 times and continue to work with Acapella and incentive spirometer. With the BNP remaining elevated, we will give her 2 doses of Lasix. Her phosphate remains markedly low, and we will give her addition of 60 mEq of K-Phos today, and otherwise, she might be ready for discharge home tomorrow. Angelo Sheffield MD /[id number] MTDD
--- NOTE | 2019-11-24 15:01 | DISCH ---
FINAL DIAGNOSES: 1. Gangrenous cholecystitis with pericholecystic abscess. 2. History of gastroesophageal reflux disease. 3. History of fibromyalgia. 4. History of anxiety and depression. OPERATIVE PROCEDURES: This was done on 11/19/2019. Diagnostic laparoscopy with: 1. Cholecystectomy. 2. Drainage of pericholecystic abscess. SUMMARY: This is a 69-year-old female presenting with some ongoing abdominal pain. Workup was consistent with acute cholecystitis. The patient was medically managed on IV antibiotics, admitted, and on 11/19/2019, underwent diagnostic laparoscopy, showed to have gangrenous cholecystitis and a well-defined pericholecystic abscess posterior to the gallbladder. Cultures of this grew out alpha strep. Postoperatively, the patient had a somewhat slow course in terms of pulmonary toilet. On 11/22/2019, the patient was still running some low-grade temperatures. This has now cleared and her T-max over the last 24 hours has been 98 and the tendency toward tachycardia has resolved. Presently, she is eating well and moving bowels. At this point, she has had enough antibiotic treatment, so she will be sent home on her usual medications plus some additional [place] 10/325 to be taken one q.8 hours p.r.n. She was on that normally once or twice a day for other chronic pain. She has an open incision in the epigastrium, which will be dressed daily with 4x4s until it has healed over. Otherwise, she will be following up with Anabela Fabian at [facility] on 11/28/2019.
--- NOTE | 2019-11-30 10:52 | OR ---
DATE OF PROCEDURE: 11/19/2019 SURGEON: Angelo Sheffield MD PREOPERATIVE DIAGNOSIS: Acute cholecystitis. POSTOPERATIVE DIAGNOSIS: Gangrenous cholecystitis with pericholecystic abscess. OPERATIVE PROCEDURE: Diagnostic laparoscopy with: 1. Cholecystectomy (94268). 2. Drainage of pericholecystic abscess ([id number]). ANESTHESIA: General. CREDIT UNION EXAMINER: Anabela Fabian PA-C INDICATIONS FOR PROCEDURE: This is a 69-year-old female presenting with acute cholecystitis. She was admitted yesterday and initiated on IV antibiotics. Plan is to proceed with cholecystectomy, laparoscopic possible open approach will be used. Potential risks including bleeding, infection, injury to underlying viscera, as well as possibility of cardiopulmonary, septic, or hemorrhagic complications leading to were discussed, and the patient wishes to proceed. DETAILS OF PROCEDURE: The patient was taken to the operating room, and after general endotracheal anesthesia was induced, the abdomen was prepped and draped. A transverse incision just to the right of the umbilicus was made and the peritoneal cavity entered under direct vision with an Optiview trocar, inflated to 15 mmHg pressure with CO2. No underlying trocar insertion site injuries were seen. At this point, a 12 mm epigastric trocar was placed along with a single 5 mm right subcostal trocar. As the gallbladder was elevated, there was noted to be a large amount of purulent material present behind it. Culture of this was obtained. Initial Gram stain did show some gram- negative rods. The gallbladder itself had areas of necrosis on its surface. Given this, the gallbladder was easily passed. A small opening was then made in the fundus of the gallbladder and the fluid contents evacuated. The gallbladder eventually was noted to have relatively several hundred stones. These were white pearly in appearance. The dissection began on the gallbladder neck, continued around the gallbladder neck and cystic duct junction. Once that area was well delineated, it was felt to be quite friable and fairly wide. The adjacent cystic artery was also identified at this point. The cystic duct and gallbladder neck junction were then divided with a JASON larios load. The artery was then divided with 3 clips proximally, 1 distally, and divided. The gallbladder was then dissected off the gallbladder bed using Harmonic scalpel and delivered through the epigastric trocar site. There were few stones that escaped the gallbladder. These were carefully retrieved and no evident the remaining stones were present. At this point, no further problems were noted. A Aaron-Cooley drain was placed through the right lateral trocar site and positioned into the gallbladder bed as well as in the area of pericholecystic abscess. The trocars were then removed. The fascia at the 12 mm sites was closed with 0 Vicryl stitch. The periumbilical incision was closed with 4-0 Vicryl stitch. The skin and subcutaneous tissue at the epigastric site where the gallbladder had been retrieved was packed open with iodoform gauze. The patient was taken to the recovery room in satisfactory condition. Physician medical technician assistant, Anabela Fabian, played an essential role in assisting in this case, helping to position the patient, retract structures as needed, as well as suturing and cutting sutures when indicated. Her presence improved patient safety and decreased operative time. Angelo Sheffield MD /[id number]
== END 2019-11-23 10:15 | disposition home health service (06) | DRG 419 ==
LOC: JP.ED 09:28 → JP.MS 12:21
PROVIDERS: ADMIT Hospitalist; ATTEND Surgery
PROC: 0FT44ZZ Resection of Gallbladder, Percutaneous Endoscopic Approach (ICD-10-PCS; principal; 2019-11-19)
PROC: 0W9G4ZZ Drainage of Peritoneal Cavity, Percutaneous Endoscopic Approach (ICD-10-PCS; 2019-11-19)
DX: K80.20 Calculus of gallbladder without cholecystitis without obstruction (principal); K80.00 Calculus of gallbladder with acute cholecystitis without obstruction; K82.A1 Gangrene of gallbladder in cholecystitis; K21.9 Gastro-esophageal reflux disease without esophagitis; M79.7 Fibromyalgia; F41.9 Anxiety disorder, unspecified; R50.82 Postprocedural fever; F32.9 Major depressive disorder, single episode, unspecified; Z88.2 Allergy status to sulfonamides; Z79.899 Other long term (current) drug therapy
CPT/HCPCS: 36415; 76705 ×2; 80053; 83690; 85025; 96361; 96365; 96375; 96376; 99283; 99285; J0287; J1170 ×2; J2405; J7050; J7120; 83735; 83880; 84100; 85027; 87070; 87075; 87077; 87205; 88304; 94667; 94668; 94762; A9270-GY; C9113; J0171; J0330; J1100; J1940; J2704; J2710; J2795; J3010; J3490; J7030; J7121

== ENCOUNTER 2021-01-29 09:40 | Emergency (ER) | payer MEDICARE, BC ==
[2021-01-29] MEDS ORDERED: Bacitracin Oint 1 GM U/D Packet TOP ONE (10:28)
--- NOTE | 2021-01-29 10:30 | EDM.PDOC ---
ED HPI GENERAL MEDICAL PROBLEM - General Chief Complaint: Laceration Stated Complaint: FELL HIT FACE Time Seen by Provider: 01/29/21 10:15 Source of Information: Reports: Patient History Limitations: Reports: No Limitations - History of Present Illness INITIAL COMMENTS - FREE TEXT/NARRATIVE: 70-year-old female stumbled over a cord and hit her face on the ground about an hour ago. She has a persistently oozing laceration on the bridge of her nose, some abrasions around her eye and right side of her face. No loss of consciousness, denies neck pain, denies any other symptoms. She is unsure of her tetanus status. Onset: Sudden Duration: Hour(s): (1 hour ago) Location: Reports: Head, Face Face/Facial Pain Score (Numeric/FACES): 7 - Related Data Allergies Allergy/AdvReac Type Severity Reaction Status Date / Time flurbiprofen [From Ansaid] Allergy Abdominal Verified 01/29/21 10:05 Pain Sulfa (Sulfonamide Allergy Rash Verified 01/29/21 10:05 Antibiotics) Home Meds: Home Meds DULoxetine [Cymbalta] 120 mg PO DAILY 01/25/14 [History] Calcium Carbonate [Tums] 400 mg PO ASDIRECTED PRN 11/18/19 [History] ClonazePAM [KlonoPIN] 0.25 mg PO BEDTIME 11/18/19 [History] Famotidine [Pepcid AC] 20 mg PO BID 11/18/19 [History] Topiramate 25 mg PO BEDTIME 11/18/19 [History] buPROPion [buPROPion XL] 450 mg PO DAILY 11/18/19 [History] estradioL [Estradiol] 0.5 mg PO DAILY 11/18/19 [History] medroxyPROGESTERone Acetate [Provera] 2.5 mg PO DAILY 11/18/19 [History] traZODone 100 mg PO BEDTIME 11/18/19 [History] Past Medical History HEENT History: Reports: Cataract Gastrointestinal History: Reports: GERD, Other (See Below) Other Gastrointestinal History: here for gall stones Musculoskeletal History: Reports: Fracture, Fibromyalgia, Osteoarthritis Neurological History: Reports: Migraines Psychiatric History: Reports: Anxiety, Depression - Infectious Disease History Infectious Disease History: Reports: Chicken Pox, Measles - Past Surgical History HEENT Surgical History: Reports: Cataract Surgery GI Surgical History: Reports: Cholecystectomy, Colonoscopy Musculoskeletal Surgical History: Reports: Other (See Below) Other Musculoskeletal Surgeries/Procedures:: bunionectomy Social & Family History - Tobacco Use Tobacco Use Status *Q: Never Tobacco User Second Hand Smoke Exposure: No - Caffeine Use Caffeine Use: Reports: Coffee - Alcohol Use Days Per Week of Alcohol Use: 0 - Recreational Drug Use Recreational Drug Use: No ED ROS GENERAL - Review of Systems Review Of Systems: See Below Constitutional: Denies: Fever, Chills HEENT: Denies: Vision Change Respiratory: Denies: Shortness of Breath GI/Abdominal: Denies: Nausea, Vomiting : Reports: No Symptoms Musculoskeletal: Reports: No Symptoms Skin: Reports: Other (Lacerations and abrasions on the face) Neurological: Reports: Other (No loss of consciousness). Denies: Headache Psychiatric: Reports: No Symptoms ED EXAM, SKIN/RASH Exam: See Below Exam Limited By: No Limitations General Appearance: Alert, No Apparent Distress Eye Exam: Bilateral Eye: Normal Inspection Nose: Other (Patient has a 3 cm curved laceration on the bridge of the nose. No significant palpation tenderness underlying the laceration. No epistaxis.) Head: Other (Superficial abrasions on the right cheek, right chin and periorbital area.) Neck: Supple, Non-Tender Respiratory/Chest: No Respiratory Distress Neurological: Alert, Oriented Psychiatric: Normal Affect, Normal Mood Skin: Other (See above) Course - Vital Signs Last Recorded V/S: Last Vital Signs Temp 97.7 F 01/29/21 10:14 Pulse 74 01/29/21 10:14 Resp 15 01/29/21 10:14 BP 146/71 H 01/29/21 10:14 Pulse Ox 97 01/29/21 10:14 - Orders/Labs/Meds Meds: Medications Discontinued Medications Generic Name Dose Route Start Last Admin Trade Name Freq PRN Reason Stop Dose Admin Bacitracin 1 dose 01/29/21 10:28 01/29/21 10:42 Bacitracin Oint 1 Gm U/D Packet TOP 01/29/21 10:29 1 dose ONETIME ONE Administration Lidocaine/Epinephrine 50 ml 01/29/21 10:37 01/29/21 10:42 Lidocaine 1% With Epinephrine 1:100,000 50 Ml Mdv INFILT 01/29/21 10:38 50 ml ONETIME ONE Administration - Re-Assessments/Exams Free Text/Narrative Re-Assessment/Exam: 01/29/21 12:12 Tetanus status was reviewed and is current as of 2017. Laceration was anesthetized with 1% lidocaine with epinephrine, washed with saline, and four 6- 0 Ethilon sutures were used to close the wound. Patient was placed on cephalexin 500 3 times a day due to the possibility of an underlying nasal bone fracture, and she was given 10 hydrocodone for extra pain control. Sutures can be removed in 6 days. She will keep the wounds covered and clean while healing, and recheck sooner if concerns of infection or not healing satisfactorily. Departure - Departure Time of Disposition: 11:18 Disposition: Home, Self-Care 01 Clinical Impression: Facial laceration Qualifiers: Encounter type: initial encounter Qualified Code(s): S01.81XA - Laceration without foreign body of other part of head, initial encounter Facial abrasion Qualifiers: Encounter type: initial encounter Qualified Code(s): S00.81XA - Abrasion of other part of head, initial encounter - Discharge Information Instructions: Laceration Care, Adult Referrals: Rodger Diggs MD [Primary Care Provider] - Forms: ED Department Discharge Care Plan Goals: Keep wounds clean while healing, sutures can be removed next Sunday. Cool compresses to swollen or sore areas will be helpful, take antibiotic as prescribed and use pain medications as needed for extra pain control. Sepsis Event Note (ED) - Evaluation Sepsis Screening Result: No Definite Risk - Focused Exam Vital Signs: Vital Signs Temp Pulse Resp BP Pulse Ox 01/29/21 10:14 97.7 F 74 15 146/71 H 97 01/29/21 09:56 97.7 F 74 15 146/71 H 97
[2021-01-29] MEDS ORDERED: Lidocaine 1% with EPINEPHrine 1:100,000 50 ML MDV INFILT ONE (10:37)
== END 2021-01-29 11:18 | disposition home or self-care (01) ==
LOC: JP.ED 09:40
DX: S01.21XA Laceration without foreign body of nose, initial encounter (principal); S01.81XA Laceration without foreign body of other part of head, initial encounter; Z88.2 Allergy status to sulfonamides; Z88.8 Allergy status to other drugs, medicaments and biological substances; W01.198A Fall on same level from slipping, tripping and stumbling with subsequent striking against other object, initial encounter
CPT/HCPCS: 12013; 99282-25

== ENCOUNTER 2024-06-01 01:32 | Emergency (ER) | payer MEDICARE, BC ==
[2024-06-01 02:31] LABS: BASOPHILS ABSOLUTE AUTO 0.04 K/uL (0.00-0.10); BASOPHILS PERCENT AUTO 0.4 % (0.1-1.3); EOSINOPHILS ABSOLUTE AUTO 0.38 K/uL (0.00-0.40); EOSINOPHILS PERCENT AUTO 3.7 % (0.0-5.4); HEMATOCRIT 30.6 % (34.3-46.0); HEMOGLOBIN 9.7 g/dL (11.2-15.5); IMMATURE GRAN ABSOLUTE AUTO 0.04 K/uL (0.00-0.23); IMMATURE GRAN PERCENT AUTO 0.4 % (0.0-0.7); LYMPHOCYTES ABSOLUTE AUTO 1.36 K/uL (0.8-3.3); LYMPHOCYTES PERCENT AUTO 13.3 % (11.4-47.7); MEAN CORPUSCULAR HGB CONC 31.7 g/dL (31.6-35.5); MEAN CORPUSCULAR VOLUME 94.7 fL (81.4-99.0); MONOCYTES ABSOLUTE AUTO 0.97 K/uL (0.20-0.90); MONOCYTES PERCENT AUTO 9.5 % (3.3-12.6); NEUTROPHILS PERCENT AUTO 72.7 % (40.0-78.1); PLATELET COUNT,PLT 271 K/uL (130-375); RED BLOOD CELL COUNT 3.23 M/uL (3.77-5.24); WHITE BLOOD CELL COUNT,WBC 10.2 K/uL (3.2-11.0)
[2024-06-01 02:48] LABS: A/G RATIO 0.7 (1.2-2.2); ALANINE AMINOTRANSFERASE,ALT 16 U/L (12-78); ALBUMIN 2.6 g/dL (3.4-5.0); ALKALINE PHOSPHATASE 95 U/L (46-116); ASPARTATE AMNIOTRANSFERASE,AST 14 U/L (15-37); BILIRUBIN TOTAL 0.4 mg/dL (0.2-1.0); BLOOD UREA NITROGEN,BUN 18 mg/dL (7-18); C-REACTIVE PROTEIN 10.92 mg/dL (<0.50); CALCIUM 9.1 mg/dL (8.5-10.1); CARBON DIOXIDE,CO2 31 mmol/L (21-32); CHLORIDE,CL 101 mmol/L (100-108); CREATININE 1.1 mg/dL (0.6-1.0); EST CRCL DRUG DOSING (CG) 39.92 mL/min; ESTIMATED GFR 53 mL/min (>60); GLUCOSE RANDOM 108 mg/dL (74-106); POTASSIUM,K 3.9 mmol/L (3.6-5.2); PROTEIN TOTAL,TP 6.5 g/dL (6.4-8.2); SODIUM,NA 138 mmol/L (140-148)
[2024-06-01 02:49] LABS: ANION GAP 9.9 mmol/L (5.0-14.0)
[2024-06-01] MEDS: Sodium Chloride 0.9% 10 ML Syringe FLUSH ONE (02:56)
[2024-06-01] MEDS: Sodium Chloride 0.9% 60 ML IV SCH (02:56)
[2024-06-01] MEDS: Iopamidol 612 MG/ML 100 ML Bottle IV PRN (02:57)
[2024-06-01] MEDS: oxyCODONE 5 MG Tab PO ONE (04:31)
== END 2024-06-01 06:43 | disposition home or self-care (01) ==
LOC: JP.ED 01:32
DX: C57.4 Malignant neoplasm of uterine adnexa, unspecified (principal); Z90.49 Acquired absence of other specified parts of digestive tract; Z88.8 Allergy status to other drugs, medicaments and biological substances; Z88.2 Allergy status to sulfonamides
CPT/HCPCS: 36415; 74177; 80053; 83605; 83690; 85025; 86140; 99285; A9270; J3490; Q9967